=== PATIENT | male | born 1985 | race Caucasian/White ===

== ENCOUNTER 2025-02-11 06:39 | Outpatient (CLI) | payer BC, SELFPAY ==
--- NOTE | 2025-02-11 08:04 | P.ANES_ITS ---
Anesthesia Charges Start Date/Time Anesthesia Start Date: 02/11/25 Anesthesia Start Time: 07:16 Stop Date/Time Anesthesia Stop Date: 02/11/25 Anesthesia Stop Time: 07:30 Coding CPT Codes CPT Codes: ANES UPR GI NDSC PX NOS - [id number] ([id number]) P1 - NORMAL HEALTHY PATIENT, QK - ELECTRICAL INSTRUMENTATION TECHNICIAN 2-4 CNCRNT ANES PROC, QX - INTERNET SALES REPRESENTATIVE SVChau W/ MED DIRECTION
--- NOTE | 2025-02-11 08:04 | W.ANESCHARGE ---
Anesthesia Charges Start Date/Time Anesthesia Start Date: 02/11/25 Anesthesia Start Time: 07:16 Stop Date/Time Anesthesia Stop Date: 02/11/25 Anesthesia Stop Time: 07:30 Coding CPT Codes CPT Codes: ANES UPR GI NDSC PX NOS - [id number] ([id number]) P1 - NORMAL HEALTHY PATIENT, QK - HIGHWAY PAINTER HELPER 2-4 CNCRNT ANES PROC, QX - ENGAGEMENT EXECUTIVE SVChau W/ MED DIRECTION
--- NOTE | 2025-02-11 08:28 | P.ANES_ITS ---
Anesthesia Charges Start Date/Time Anesthesia Start Date: 02/11/25 Anesthesia Start Time: 07:16 Stop Date/Time Anesthesia Stop Date: 02/11/25 Anesthesia Stop Time: 07:30 Coding CPT Codes CPT Codes: ANES UPR GI NDSC PX NOS - 38429 ([id number]) P1 - NORMAL HEALTHY PATIENT, QK - TECHNOLOGY EDUCATION TEACHER 2-4 CNCRNT ANES PROC, QX - LINING CEMENTER SVChau W/ MED DIRECTION
--- NOTE | 2025-02-11 08:28 | W.ANESCHARGE ---
Anesthesia Charges Start Date/Time Anesthesia Start Date: 02/11/25 Anesthesia Start Time: 07:16 Stop Date/Time Anesthesia Stop Date: 02/11/25 Anesthesia Stop Time: 07:30 Coding CPT Codes CPT Codes: ANES UPR GI NDSC PX NOS - [id number] ([id number]) P1 - NORMAL HEALTHY PATIENT, QK - EXTERNAL GRINDER TOOL 2-4 CNCRNT ANES PROC, QX - SEAM RUBBING MACHINE OPERATOR SVChau W/ MED DIRECTION
== END 2025-02-11 06:40 | disposition home or self-care (01) ==
PROVIDERS: Visit Provider Internal Medicine Gastroenterology
DX: R13.10 Dysphagia, unspecified (principal); K21.9 Gastro-esophageal reflux disease without esophagitis; K92.0 Hematemesis; K22.89 Other specified disease of esophagus; J02.9 Acute pharyngitis, unspecified
CPT/HCPCS: 00731; 43239; 88305; J2704; J3490